=== PATIENT | female | born 1990 | race Two or more races ===

== ENCOUNTER 2021-02-18 06:29 | Emergency (ER) | payer SELFPAY ==
[~2021-02-18] VITALS: Ht 157.5 cm; Wt 65.9 kg
[2021-02-18] MEDS ORDERED: STERAPRED DS 1010 MG PO (06:36)
[2021-02-18 07:04] VITALS: Ht 157.5 cm; Wt 65.9 kg
[2021-02-18 07:10] LABS: BASOPHILS 0.7 % (0-2); EOSINOPHILS 0.8 % (0-7); HEMATOCRIT 43.4 % (36.0-48.0); HEMOGLOBIN 14.6 g/dL (12-16); LYMPHOCYTES 34.6 % (15-50); MCH 29.2 pg (26.0-34.0); MCHC 33.8 g/dL (31.0-37.0); MCV 86.5 fL (80.0-100.0); MEAN PLATELET VOLUME 8.7 fL (7.4-10.4); MONOCYTES 5.3 % (2-11); NEUTROPHILS 58.6 % (40-80); PLATELET COUNT 265 10x3/uL (130-400); RBC 5.02 10x6/uL (4.00-5.40); RDW 13.4 % (11.5-14.5); WBC 8.6 10x3/uL (4.8-10.8)
[2021-02-18 07:18] VITALS: BP 140/86
[2021-02-18 07:27] LABS: CALC OSMOLALITY 284 mosm/kg (275-300); CALCIUM 9.1 mg/dL (8.5-10.1); CARBON DIOXIDE 30.8 mmol/L (21.0-32.0); CHLORIDE - SERUM 104 mmol/L (98-107); CREATININE - SERUM 0.8 mg/dL (0.6-1.3); GLUCOSE 86 mg/dL (74-106); POTASSIUM - SERUM 3.5 mmol/L (3.5-5.1); SODIUM 142 mmol/L (136-145); UREA NITROGEN 20 mg/dL (7-18); eGFR NON AFRICAN AMERICAN 89 mL/min (90-120)
[2021-02-18 07:33] LABS: ALBUMIN 4.6 g/dL (3.4-5.0); ALKALINE PHOSPHATASE 74 U/L (30-120); ALT (SGPT) 21 U/L (10-68); BILIRUBIN - TOTAL 3.58 mg/dL (0.2-1.3); PROTEIN - SERUM 8.2 g/dL (6.4-8.2)
[2021-02-18 07:34] LABS: C-REACTIVE PROTEIN < 0.2 mg/dL (0.0-0.9)
[2021-02-18 08:44] LABS: ERYTHROCYTE SEDIMENTATION RATE 4 mm/hr (0-20)
== END 2021-02-18 09:10 | disposition home or self-care (01) ==
LOC: D.ER 06:29
PROVIDERS: Family Medicine
DX: M54.14 Radiculopathy, thoracic region (principal)